=== PATIENT | male | born 1935 | race Caucasian/White ===

== ENCOUNTER → 2018-09-16 | Outpatient (CLI) | payer MEDICARE, OTHER ==
[2018-09-16 12:02] LABS: BLOOD UREA NITROGEN 38 mg/dl (7-20)
[2018-09-16 12:02] LABS: CREATININE 1.54 mg/dl (0.61-1.24)
== END | disposition home or self-care (01) ==
LOC: LAB 11:15
DX: I25.10 Atherosclerotic heart disease of native coronary artery without angina pectoris (principal)
CPT/HCPCS: 82565; 84520